=== PATIENT | female | born 2005 | race African-American/Black ===

== ENCOUNTER 2024-04-16 17:45 | Emergency (ER) | payer SELFPAY ==
[2024-04-16] MEDS: SODIUM CHLORIDE 0.9% 500 ML INFUS.BAG IV ONE (18:53)
[2024-04-16 18:55] LABS: HEMATOCRIT 22.4 % (32.4-45.2); MCH 25.9 pg (25.7-33.7); MEAN CELL VOLUME 86.3 fl (80-96); MEAN PLT VOLUME 6.3 fl (7.5-11.1); PLATELET COUNT 853.7 10^3/uL (134-434); RDW 18.2 % (11.6-15.6); WHITE BLOOD COUNT 15.5 10^3/uL (4.0-10.8)
[2024-04-16 19:00] LABS: HEMOGLOBIN 6.7 G/dL (10.7-15.3); PLATELET ESTIMATE SIGNIFICANT INCREASE
[2024-04-16 19:03] LABS: ALBUMIN 3.5 g/dl (3.4-5.0); ALK PHOS 72 U/L (45-117); ANION GAP 10 mmol/L (4-13); BILIRUBIN,TOTAL 0.4 mg/dl (0.2-1); CHLORIDE 101 mmol/L (98-107); CO2 28 mmol/L (21-32); CREATININE 0.7 mg/dl (0.6-1.3); GLUCOSE,RANDOM 77 mg/dl (74-106); PHOSPHOROUS 3.8 (2.5-4.9); POTASSIUM 3.4 mmol/L (3.5-5.1); SGOT/AST 12 U/L (15-37); SGPT/ALT 11 U/L (7-52); SODIUM 139 mmol/L (136-145); TOT PROT 6.8 g/dl (6.4-8.2)
[2024-04-16 22:45] VITALS: RESP 16
[2024-04-17 00:01] VITALS: BP 115/83; PULSE 115; TEMP 98.8
[2024-04-17 00:33] VITALS: BMI 17.9
== END 2024-04-17 00:33 | disposition home or self-care (01) ==
LOC: FER 17:45
DX: D64.9 Anemia, unspecified (principal); R63.4 Abnormal weight loss; R00.0 Tachycardia, unspecified
CPT/HCPCS: 36415; 36430; 71045-TC-FY; 80053; 83735; 84100; 84439; 84443; 84484; 85027; 86900; 93005; 99285-25; P9058